=== PATIENT | female | born 1970 | race Caucasian/White ===

== ENCOUNTER 2018-07-15 09:56 | Emergency (ER) | payer OTHER ==
[2018-07-15] MEDS ORDERED: Azithromycin 250 MG TAB ONE (10:32)
--- NOTE | 2018-07-15 11:04 | RAD ---
CHEST 2 VIEWS: Date: 07/15/18 COMPARISON: None. HISTORY: Cough. FINDINGS: There is no pneumothorax or pleural fluid. No focal consolidation or alveolar edema. IMPRESSION: No acute findings. POS: [facility]
== END 2018-07-15 10:44 | disposition home or self-care (01) ==
LOC: BURERS 09:56
DX: J06.9 Acute upper respiratory infection, unspecified (principal)
CPT/HCPCS: 71046